=== PATIENT | female | born 2005 | race Two or more races ===

== ENCOUNTER 2024-05-21 14:35 | Observation (INO) | payer MEDICAID ==
[2024-05-21] MEDS ORDERED: PREN-96 PO (14:43)
== END 2024-05-21 16:20 | disposition home or self-care (01) ==
LOC: LDRP 14:35
PROVIDERS: ADMIT Obstetrics & Gynecology; ATTEND Obstetrics & Gynecology
DX: O36.8130 Decreased fetal movements, third trimester, not applicable or unspecified (principal); O26.893 Other specified pregnancy related conditions, third trimester; R51.9 Headache, unspecified; Z3A.34 34 weeks gestation of pregnancy; Z88.0 Allergy status to penicillin
CPT/HCPCS: 59025; 76818; 81002; 94760; G0378